=== PATIENT | female | born 1990 | race Caucasian/White ===

== ENCOUNTER 2016-08-25 17:51 | Inpatient (IN) | payer MEDICAID, OTHER ==
[~2016-08-25] VITALS: Ht 158.8 cm; Wt 75.0 kg
[2016-08-25 17:53] VITALS: BP 147/82; PULSE 140; RESP 18; TEMP 102.9; O2SAT 97
[2016-08-25 18:25] LABS: AUTOMATED NEUTROPHIL # 15.9 TH/MM3 (1.8-7.7); BASOPHIL % 0.2 % (0.0-2.0); EOSINOPHIL % 0.2 % (0.0-4.0); HEMATOCRIT 40.8 % (35.0-46.0); LYMPH % 12.6 % (9.0-44.0); LYMPHOCYTE # 2.5 TH/MM3 (1.0-4.8); MEAN CELL VOLUME 88.3 FL (80.0-100.0); MEAN CORPUSCULAR HEMOGLOBIN 29.2 PG (27.0-34.0); MEAN CORPUSCULAR HGB CONC 33.1 % (32.0-36.0); MONO % 7.5 % (0.0-8.0); NEUT % 79.5 % (16.0-70.0); PLATELET COUNT 235 TH/MM3 (150-450); RED BLOOD COUNT 4.63 MIL/MM3 (4.00-5.30); RED CELL DISTRIBUTION WIDTH 14.3 % (11.6-17.2)
[2016-08-25 18:47] LABS: BICARBONATE 23.2 MEQ/L (21.0-32.0); POTASSIUM 3.6 MEQ/L (3.5-5.1)
[2016-08-25 18:51] LABS: HEMO FLAGS AUTO DIFF
[2016-08-25] MEDS ORDERED: CLINDAMYCIN INJ 900 MG in SODIUM CHLORIDE 0.9% INJ 100 ML IV STA (19:18)
[2016-08-25] MEDS ORDERED: metroNIDAZOLE 500 MG INJ 100 ML IV STA (19:18)
--- NOTE | 2016-08-25 19:34 | PD ---
HPI Chief Complaint: Fever Time Seen by Provider: 19:18 Travel History International Travel<30 days: No Contact w/Intl Traveler<30days: No Traveled to known affect area: No History of Present Illness HPI 25-year-old female with history of poor dentition and previous dental infections , had a dental abscess on her left mandibular premolar that started draining today and she states that soon after she started feeling more swelling in the left mandible area under the jaw. She states that it feels exactly going to the right side as well. She states that she has some trouble coughing but denies any difficulty swallowing, talking, or shortness of breath. She has been feeling ill and has been having fevers. Modifying Factors: None Associated Signs & Symptoms: Mandibular abscess, jaw swelling Risk Factors: None PFSH Past Medical History Medical History: Denies Significant Hx Diminished Hearing: No Tetanus Vaccination: < 5 Years Influenza Vaccination: Yes ?: Not LMP: 07/28/16 Past Surgical History Surgical History: No Previous Surgery Social History Alcohol Use: Yes (ocassionally) Tobacco Use: Yes (1/2 pack per day ) Substance Use: No (pt denies) Allergies-Medications (Allergen,Severity, Reaction): Coded Allergies: No Known Allergies (Unverified , 08/25/16) Reported Meds & Prescriptions Reported Meds & Active Scripts Active No Active Prescriptions or Reported Medications Review of Systems Except as stated in HPI: all other systems reviewed are Neg Physical Exam Narrative GENERAL: Well-developed young female patient currently in mild distress. Awake and oriented 3. She is talking without problems. SKIN: Focused skin assessment warm/dry. HEAD: Atraumatic. Normocephalic. EYES: Pupils equal and round. No scleral icterus. No injection or drainage. ENT: Mucosa pink and moist. No erythema or exudates. No uvular edema. No uvular , palatal, or tonsillar deviation. Airway patent. There is no fullness or tenderness on palpation of the submandibular area. Notable poor dentition in the left mandibular molars. ENT: No nasal bleeding or discharge. Mucous membranes pink and moist. NECK: Trachea midline. No JVD. CARDIOVASCULAR: Regular rate and rhythm. No murmur appreciated. RESPIRATORY: No accessory muscle use. Clear to auscultation. Breath sounds equal bilaterally. GASTROINTESTINAL: Abdomen soft, non-tender, nondistended. Hepatic and splenic margins not palpable. MUSCULOSKELETAL: No obvious deformities. No clubbing. No cyanosis. No edema. NEUROLOGICAL: Awake and alert. No obvious cranial nerve deficits. Motor grossly within normal limits. Normal speech. PSYCHIATRIC: Appropriate mood and affect; insight and judgment normal. Data Data Last Documented VS Vital Signs Date Time Temp Pulse Resp B/P Pulse Ox O2 Delivery O2 Flow Rate FiO2 08/25/16 18:40 18 100 Room Air 08/25/16 17:53 102.9 140 147/82 Orders Blood Culture (08/25/16 17:57) Complete Blood Count With Diff (08/25/16 17:57) Basic Metabolic Panel (Bmp) (08/25/16 17:57) Lactic Acid (08/25/16 17:57) Electrocardiogram (08/25/16 ) Metronidazole 500 Mg Inj (Flagyl 500 Mg (08/25/16 19:18) Clindamycin Inj (Cleocin Inj) (08/25/16 19:18) Ct Soft Tiss Neck W Iv Cont (08/25/16 ) Iohexol 350 Inj (Omnipaque 350 Inj) (08/25/16 20:20) Labs Laboratory Tests Test 08/25/16 18:06 White Blood Count 20.0 TH/MM3 Red Blood Count 4.63 MIL/MM3 Hemoglobin 13.5 GM/DL Hematocrit 40.8 % Mean Corpuscular Volume 88.3 FL Mean Corpuscular Hemoglobin 29.2 PG Mean Corpuscular Hemoglobin 33.1 % Concent Red Cell Distribution Width 14.3 % Platelet Count 235 TH/MM3 Mean Platelet Volume 7.6 FL Neutrophils (%) (Auto) 79.5 % Lymphocytes (%) (Auto) 12.6 % Monocytes (%) (Auto) 7.5 % Eosinophils (%) (Auto) 0.2 % Basophils (%) (Auto) 0.2 % Neutrophils # (Auto) 15.9 TH/MM3 Lymphocytes # (Auto) 2.5 TH/MM3 Monocytes # (Auto) 1.5 TH/MM3 Eosinophils # (Auto) 0.0 TH/MM3 Basophils # (Auto) 0.0 TH/MM3 CBC Comment AUTO DIFF Differential Comment AUTO DIFF CONFIRMED Sodium Level 134 MEQ/L Potassium Level 3.6 MEQ/L Chloride Level 103 MEQ/L Carbon Dioxide Level 23.2 MEQ/L Anion Gap 8 MEQ/L Blood Urea Nitrogen 10 MG/DL Creatinine 0.79 MG/DL Estimat Glomerular Filtration 89 ML/MIN Rate Random Glucose 108 MG/DL Lactic Acid Level 0.9 mmol/L Calcium Level 8.5 MG/DL MDM Medical Decision Making Medical Screen Exam Complete: Yes Emergency Medical Condition: Yes Medical Record Reviewed: Yes Interpretation(s) Laboratory Tests Test 08/25/16 18:06 White Blood Count 20.0 TH/MM3 (4.0-11.0) Neutrophils (%) (Auto) 79.5 % (16.0-70.0) Neutrophils # (Auto) 15.9 TH/MM3 (1.8-7.7) Monocytes # (Auto) 1.5 TH/MM3 (0-0.9) Sodium Level 134 MEQ/L (136-145) Random Glucose 108 MG/DL (74-106) Last [address] 08/25/16 0000 Signed Impressions: Service Date/Time: Thursday, August 25, 2016 20:16 - CONCLUSION: 1. There is heterogeneous enhancement of the tonsillar pillars but no abscess or peritonsillar abscess is seen. 2. There are mildly enlarged level II lymph nodes bilaterally which may be reactive. The Shakir Aguero MD Differential Diagnosis Dental abscess versus submandibular abscess versus facial cellulitis Narrative Course Patient was given IV antibiotics after cultures were drawn in the ER. Lab work shows significant leukocytosis. Lactate was not significantly elevated. CT of the soft tissues of the neck did not show any signs of obvious abscess. Case was discussed with Dr. Yang who states that he is agreeable with the IV antibiotic and that patient can follow-up in his office as long as she does not develop further surgical issues. At this point, since symptoms are progressive fast and patient appears to have signs of sepsis, my plan would be to admit her for further treatment. Case was discussed with Dr. Patterson for admission. Diagnosis Primary Impression: Dental abscess Additional Impressions: Sepsis Cellulitis and abscess of mouth Admitting Information Admitting Physician Requests: Admit Scripts No Active Prescriptions or Reported Meds Kira Hendricks MD Aug 25, 2016 19:34
[2016-08-25 19:50] LABS: SCAN/DIFF AUTO DIFF CONFIRMED
[2016-08-25] MEDS ORDERED: IOHEXOL 350 MG/ML 10 ML VIAL (for RAD DIAG) IV ONE (20:20)
--- NOTE | 2016-08-25 20:36 | RADRPT ---
EXAM DATE/TIME: 08/25/2016 20:16 [facility] COMPARISON: No previous studies available for comparison. INDICATIONS : Abscess ruptured in back of mouth last night. Fever left sided neck swelling. IV CONTRAST: 70 cc Omnipaque 350 (iohexol) IV RADIATION DOSE: 15.55 CTDIvol (mGy) MEDICAL HISTORY : None SURGICAL HISTORY : None. ENCOUNTER: Initial ACUITY: 1 day PAIN SCALE: 4/10 LOCATION: neck TECHNIQUE: Volumetric scanning of the neck was performed. Using automated exposure control and adjustment of th e mA and/or kV according to patient size, radiation dose was kept as low as reasonably achievable to obtain optimal diagnostic quality images. FINDINGS: NASOPHARYNX: The nasopharyngeal airway has a normal configuration. No mucosal thickening or mass is seen. OROPHARYNX: The intrinsic muscles of the tongue are symmetric. The tonsillar pillars demonstrate heterogeneous e nhancement but no abscess is identified. The prevertebral soft tissues are not thickened. LARYNX: The supraglottic, glottic, and infraglottic structures demonstrate no acute finding. SALIVARY GLANDS: The parotid and submandibular glands are within normal limits. LYMPH NODES: There are mildly enlarged level II lymph nodes bilaterally measuring up to 13 mm in short axis diamet er. THYROID: Within normal limits. BONES: Within normal limits. Intracranial structures and orbits demonstrate no acute finding. The visualized sinuses are clear. CONCLUSION: 1. There is heterogeneous enhancement of the tonsillar pillars but no abscess or peritonsillar absces s is seen. 2. There are mildly enlarged level II lymph nodes bilaterally which may be reactive. The Shakir Aguero MD on August 25, 2016 at 20:31 Board Certified Radiologist. This report was verified electronically.
[2016-08-25] MEDS ORDERED: NALOXONE HCL 0.4 MG/ML AMP IV PRN (21:45)
[2016-08-25] MEDS ORDERED: SODIUM CHLORIDE 0.9% FLUSH 10 ML FLUSH IV FLUSH PRN (21:45)
[2016-08-25] MEDS: SODIUM CHLOR 0.9% 1000 ML INJ 1,000 ML IV SCH (22:16)
[2016-08-25 22:27] VITALS: TEMP 102
[2016-08-25 23:01] VITALS: BP 103/58; PULSE 116; RESP 16; O2SAT 95
[2016-08-25] MEDS: ACETAMINOPHEN 325 MG TAB PO PRN (23:02)
[2016-08-25 23:52] VITALS: BP 109/54; PULSE 111; RESP 18; TEMP 102; O2SAT 95
[2016-08-26] VITALS (7 sets, daily range): BP systolic 107–124; BP diastolic 56–64; PULSE 85–119; RESP 18–20; TEMP 97.7–101.7; O2SAT 94–97
[2016-08-26] MEDS: CLINDAMYCIN INJ 900 MG in SODIUM CHLORIDE 0.9% INJ 100 ML IV SCH ×4 (03:22→16:20)
[2016-08-26] MEDS: ACETAMINOPHEN 325 MG TAB PO PRN ×2 (06:10→10:12)
--- NOTE | 2016-08-26 08:35 | HHI.HP ---
[facility] No Primary Care Physician Admission Diagnosis left mandibular tooth abscess/cellulitis/sepsis Diagnoses: Chief Complaint: left mandibular swelling Travel History International Travel<30 Days: No Contact w/Intl Traveler <30 Da: No Traveled to Known Affected Are: No Sepsis Criteria SIRS Criteria (2 or more): Temp > 100.9 or < 96.8, Heart rate over 90, WBC > 77305, < 4000 or > 10% bands Sepsis Criteria (SIRS+source): Infect source susp/known History of Present Illness Written by TATY Hyde acting as scribe for Dr. Zee] on 08/26/16 at 08: 25. This note was transcribed by scribe TATY Hyde. I, Dr. Kary Parrish personally performed the history, physical exam, and medical decision making; and confirmed the accuracy of the information in the transcribed note. Authenticated by Dr. Kary Parrish on 08/26/16 at 08:25. 25 y/o female with no medical history presented to the ED with complaints of fever, swelling, headache, and unable to eat since Thursday. She says she had an abscess in her mouth that she popped on Thursday. She state her headache is throbbing 10/10 with radiation to her neck, the pain is made worse by coughing, and she is requesting pain medication. She denies any chest pain, sputum production, nausea or vomiting. She states she has only been able to drink chicken broth, she has not consumed any solid food due to the pain and swelling. Review of Systems Constitutional: COMPLAINS OF: Fever, DENIES: Chills Ears, nose, mouth, throat: COMPLAINS OF: Toothache, DENIES: Nasal discharge, Running Nose Respiratory: COMPLAINS OF: Cough, DENIES: Sputum production, Shortness of breath Cardiovascular: DENIES: Chest pain, Lower Extremity Edema Gastrointestinal: COMPLAINS OF: Difficulty Swallowing, DENIES: Constipation, Diarrhea, Nausea, Vomiting Genitourinary: DENIES: Hematuria, Dysuria Musculoskeletal: DENIES: Back pain, Neck pain Integumentary: DENIES: Rash Neurologic: COMPLAINS OF: Headache, DENIES: Localized weakness Past Family Social History Past Medical History patient denies medical history Past Surgical History appendectomy Reported Medications Reported Meds & Active Scripts Active No Active Prescriptions or Reported Medications Allergies: Coded Allergies: No Known Allergies (Unverified , 08/25/16) Active Ordered Medications Current Medications Medications (Trade) Dose Ordered Sig/Chidi Route Start Time Stop Time Status Last Admin (NS 1000 ml Inj) 1,000 ml @ 100 mls/hr Q10H IV 08/25/16 22:00 08/25/16 22:16 (NS Flush) 2 ml UNSCH PRN IV FLUSH 08/25/16 21:45 (NS Flush) 2 ml BID IV FLUSH 08/26/16 09:00 Naloxone HCl 0.4 mg 0.4 mg UNSCH PRN IV 08/25/16 21:45 (Cleocin Inj/NS Inj) 106 ml @ 212 mls/hr Q6H IV 08/26/16 03:00 08/26/16 03:22 (Tylenol) 650 mg Q4H PRN PO 08/25/16 23:00 08/26/16 06:10 Family History patient is unsure if her family has any medical history Social History Tobacco use; ppd Alcohol use illicit drug use; denies Physical Exam Vital Signs Vital Signs Date Time Temp Pulse Resp B/P Pulse Ox O2 Delivery O2 Flow Rate FiO2 08/26/16 07:10 100.5 109 20 124/59 94 08/26/16 05:14 101.7 119 18 111/58 95 08/26/16 00:21 101 08/25/16 23:52 102.0 111 18 109/54 95 08/25/16 23:01 116 16 103/58 95 Room Air 08/25/16 22:27 102.0 08/25/16 18:40 18 100 Room Air 08/25/16 17:53 102.9 140 18 147/82 97 Physical Exam GENERAL: This is a well-nourished patient who appears to be in pain SKIN: No rashes, ecchymoses or lesions. Cool and dry. Erythema left lower law and cheek. HEAD: Atraumatic. Normocephalic. EYES: Pupils equal round and reactive. ENT: Nose without bleeding, purulent drainage or septal hematoma. Left mandible edema. Airway patent. NECK: Trachea midline. No JVD or lymphadenopathy. Supple, nontender, no meningeal signs. CARDIOVASCULAR: Regular rate and rhythm without murmurs, gallops, or rubs. RESPIRATORY: Clear to auscultation. Breath sounds equal bilaterally. No wheezes , rales, or rhonchi. GASTROINTESTINAL: Abdomen soft, non-tender, nondistended. No hepato-splenomegaly , or palpable masses. No guarding. MUSCULOSKELETAL: Extremities without clubbing, cyanosis, or edema. No calf tenderness. NEUROLOGICAL: Awake and alert. Motor and sensory grossly within normal limits. Normal speech. Laboratory Laboratory Tests Test 08/25/16 18:06 White Blood Count 20.0 Red Blood Count 4.63 Hemoglobin 13.5 Hematocrit 40.8 Mean Corpuscular Volume 88.3 Mean Corpuscular Hemoglobin 29.2 Mean Corpuscular Hemoglobin 33.1 Concent Red Cell Distribution Width 14.3 Platelet Count 235 Mean Platelet Volume 7.6 Neutrophils (%) (Auto) 79.5 Lymphocytes (%) (Auto) 12.6 Monocytes (%) (Auto) 7.5 Eosinophils (%) (Auto) 0.2 Basophils (%) (Auto) 0.2 Neutrophils # (Auto) 15.9 Lymphocytes # (Auto) 2.5 Monocytes # (Auto) 1.5 Eosinophils # (Auto) 0.0 Basophils # (Auto) 0.0 CBC Comment AUTO DIFF Differential Comment AUTO DIFF CONFIRMED Sodium Level 134 Potassium Level 3.6 Chloride Level 103 Carbon Dioxide Level 23.2 Anion Gap 8 Blood Urea Nitrogen 10 Creatinine 0.79 Estimat Glomerular Filtration 89 Rate Random Glucose 108 Lactic Acid Level 0.9 Calcium Level 8.5 Date/Time Procedure Status Source Growth 08/25/16 18:05 Aerobic Blood Culture Received Blood Peripheral Pending 08/25/16 18:05 Anaerobic Blood Culture Received Blood Peripheral Pending Result Diagram: 08/25/16 1806 08/25/16 1806 Imaging Last Impressions Neck CT 08/25/16 0000 Signed Impressions: Service Date/Time: Thursday, August 25, 2016 20:16 - CONCLUSION: 1. There is heterogeneous enhancement of the tonsillar pillars but no abscess or peritonsillar abscess is seen. 2. There are mildly enlarged level II lymph nodes bilaterally which may be reactive. The Shakir Aguero MD Assessment and Plan Problem List: (1) Sepsis ICD Code: A41.9 Status: Acute (2) Cellulitis of mouth ICD Code: K12.2 Status: Acute Assessment and Plan 25 y/o female with no medical history presented to the ED with complaints of fever, swelling, headache, and unable to eat since Thursday. She says she had an abscess in her mouth that she popped on Thursday. Sepsis, WBC 20, fever 102, due to cellulitis of the mouth Neck ct shows heterogeneous enhancement of the tonsillar pillars but no abscess or peritonsillar abscess is seen.There are mildly enlarged level II lymph nodes bilaterally which may be reactive. -Cont clindamycin IV for at least 48 hours, DC on PO -CBC pending, trend -Blood cultures pending -Per ER DrDr Yang states patient can follow up outpatient, and he agrees with IV antibiotics -IV Decadron 4mg Q8 for 24 hours, then BID -Pain management with IV morphine 2mg Q3h Tobacco use, chronic -encouraged to quit -cessation given DVT Prophylaxis: low risk, encourage ambulation Discussed Condition With Patient Physician Certification 2 Midnight Certification Type: Admission for Inpatient Services Order for Inpatient Services The services are ordered in accordance with Medicare regulations or non- Medicare payer requirements, as applicable. In the case of services not specified as inpatient-only, they are appropriately provided as inpatient services in accordance with the 2-midnight benchmark. Estimated LOS (days): 3 days is the estimated time the patient will need to remain in the hospital, assuming treatment plan goals are met and no additional complications. Post-Hospital Plan: Home Mariely Pascal Aug 26, 2016 08:35 Kary Parrish MD Aug 26, 2016 12:11
[2016-08-26] MEDS ORDERED: MORPHINE SULFATE 4 MG/ML INJ IV PUSH PRN (09:15)
[2016-08-26] MEDS: SODIUM CHLORIDE 0.9% FLUSH 10 ML FLUSH IV FLUSH SCH ×2 (09:32→21:00)
[2016-08-26] MEDS: SODIUM CHLOR 0.9% 1000 ML INJ 1,000 ML IV SCH ×3 (09:32→21:20)
[2016-08-26] MEDS: DEXAMETHASONE SOD PHOS 4 MG/ML VIAL IV SCH ×2 (10:11→17:30)
[2016-08-26 10:32] LABS: AUTOMATED NEUTROPHIL # 14.7 TH/MM3 (1.8-7.7); BASOPHIL # 0.1 TH/MM3 (0-0.2); BASOPHIL % 0.3 % (0.0-2.0); EOSINOPHIL % 0.1 % (0.0-4.0); HEMATOCRIT 38.1 % (35.0-46.0); HEMO FLAGS DIFF FINAL; LYMPH % 11.3 % (9.0-44.0); LYMPHOCYTE # 2.1 TH/MM3 (1.0-4.8); MEAN CELL VOLUME 88.9 FL (80.0-100.0); MEAN CORPUSCULAR HEMOGLOBIN 29.5 PG (27.0-34.0); MEAN CORPUSCULAR HGB CONC 33.2 % (32.0-36.0); MONO % 7.9 % (0.0-8.0); NEUT % 80.4 % (16.0-70.0); PLATELET COUNT 210 TH/MM3 (150-450); RED BLOOD COUNT 4.28 MIL/MM3 (4.00-5.30); RED CELL DISTRIBUTION WIDTH 14.3 % (11.6-17.2); WHITE BLOOD COUNT 18.3 TH/MM3 (4.0-11.0)
[2016-08-26 10:49] LABS: BICARBONATE 23.8 MEQ/L (21.0-32.0); POTASSIUM 3.5 MEQ/L (3.5-5.1)
[2016-08-26] MEDS: NICOTINE 14 MG/24 HR PATCH T-DERMAL SCH (16:20)
--- NOTE | 2016-08-26 17:07 | EKG ---
Date Performed: 08/25/2016 Time Performed: 18:21:03 PTAGE: 25 years EKG: SINUS TACHYCARDIA NONSPECIFIC T-WAVE ABNORMALITY ABNORMAL RHYTHM ECG NO PREVIOUS TRACING DOCTOR: Carito Sam Interpretating Date/Time 08/26/2016 17:05:54
[2016-08-26] MEDS: REMOVE OLD NICODERM (NICOTINE) PATCH T-DERMAL SCH (21:00)
[2016-08-27] VITALS (7 sets, daily range): BP systolic 95–123; BP diastolic 54–65; PULSE 20–87; RESP 16–20; TEMP 97.3–98.3; O2SAT 91–97
[2016-08-27] MEDS: DEXAMETHASONE SOD PHOS 4 MG/ML VIAL IV SCH (02:29)
[2016-08-27] MEDS: CLINDAMYCIN INJ 900 MG in SODIUM CHLORIDE 0.9% INJ 100 ML IV SCH ×4 (02:33→20:03)
[2016-08-27 07:19] LABS: BASOPHIL % 0.2 % (0.0-2.0); HEMATOCRIT 38.4 % (35.0-46.0); HEMO FLAGS DIFF FINAL; LYMPH % 6.6 % (9.0-44.0); LYMPHOCYTE # 1.3 TH/MM3 (1.0-4.8); MEAN CELL VOLUME 88.4 FL (80.0-100.0); MEAN CORPUSCULAR HEMOGLOBIN 29.8 PG (27.0-34.0); MEAN CORPUSCULAR HGB CONC 33.7 % (32.0-36.0); MONO % 3.6 % (0.0-8.0); NEUT % 89.6 % (16.0-70.0); PLATELET COUNT 219 TH/MM3 (150-450); RED BLOOD COUNT 4.35 MIL/MM3 (4.00-5.30); RED CELL DISTRIBUTION WIDTH 14.3 % (11.6-17.2); WHITE BLOOD COUNT 18.9 TH/MM3 (4.0-11.0)
[2016-08-27 07:21] LABS: BICARBONATE 21.1 MEQ/L (21.0-32.0); POTASSIUM 4.3 MEQ/L (3.5-5.1)
[2016-08-27] MEDS: NICOTINE 14 MG/24 HR PATCH T-DERMAL SCH ×2 (08:26→20:08)
[2016-08-27] MEDS: SODIUM CHLORIDE 0.9% FLUSH 10 ML FLUSH IV FLUSH SCH ×2 (08:26→20:01)
[2016-08-27] MEDS: DEXAMETHASONE SOD PHOS 4 MG/ML VIAL IV PUSH SCH ×2 (08:26→20:01)
--- NOTE | 2016-08-27 08:54 | HHI.PR ---
Subjective Remarks Says pain and swelling seems to improved and she is norm to eat some today. Feels tired and has soem sob. No fever, has chills overnight. No n/v/d/c. Objective Vitals Vital Signs Date Time Temp Pulse Resp B/P Pulse Ox O2 Delivery O2 Flow Rate FiO2 08/27/16 04:31 97.3 79 16 120/65 95 08/27/16 00:00 97.5 86 16 95/54 95 08/26/16 20:00 87 08/26/16 20:00 98.1 92 18 113/64 97 08/26/16 16:36 97.7 88 18 112/57 96 08/26/16 16:29 85 08/26/16 12:29 98.7 91 18 107/56 97 I/O 08/26/16 08/26/16 08/26/16 08/27/16 08/27/16 08/27/16 07:00 15:00 23:00 07:00 15:00 23:00 Intake Total 500 ml 1500 ml 650 ml Output Total 0 ml Balance 500 ml 1500 ml 650 ml Intake Oral 500 ml 500 ml 650 ml IV Total 1000 ml Output Urine Total 0 ml # Voids 3 7 4 # Bowel Movements 0 0 0 Result Diagram: 08/27/16 0535 08/27/16 0535 Imaging Last Impressions Neck CT 08/25/16 0000 Signed Impressions: Service Date/Time: Thursday, August 25, 2016 20:16 - CONCLUSION: 1. There is heterogeneous enhancement of the tonsillar pillars but no abscess or peritonsillar abscess is seen. 2. There are mildly enlarged level II lymph nodes bilaterally which may be reactive. The Shakir Aguero MD Objective Remarks GENERAL: This is a well-nourished patient who appears to be in pain SKIN: No rashes, ecchymoses or lesions. Cool and dry. Erythema left lower law and cheek. HEAD: Atraumatic. Normocephalic. EYES: Pupils equal round and reactive. ENT: Nose without bleeding, purulent drainage or septal hematoma. Left mandible edema. Airway patent. NECK: Trachea midline. No JVD or lymphadenopathy. Supple, nontender, no meningeal signs. CARDIOVASCULAR: Regular rate and rhythm without murmurs, gallops, or rubs. RESPIRATORY: Clear to auscultation. Breath sounds equal bilaterally. No wheezes , rales, or rhonchi. GASTROINTESTINAL: Abdomen soft, non-tender, nondistended. No hepato-splenomegaly , or palpable masses. No guarding. MUSCULOSKELETAL: Extremities without clubbing, cyanosis, or edema. No calf tenderness. NEUROLOGICAL: Awake and alert. Motor and sensory grossly within normal limits. Normal speech. A/P Problem List: (1) Sepsis ICD Code: A41.9 Status: Acute (2) Cellulitis of mouth ICD Code: K12.2 Status: Acute Assessment and Plan 25 y/o female with no medical history presented to the ED with complaints of fever, swelling, headache, and unable to eat since Thursday. She says she had an abscess in her mouth that she popped on Thursday. Sepsis, WBC 20, fever 102, due to cellulitis of the mouth. Neck ct shows heterogeneous enhancement of the tonsillar pillars but no abscess or peritonsillar abscess is seen.There are mildly enlarged level II lymph nodes bilaterally which may be reactive. -Cont clindamycin IV for at least 48 hours, DC on PO -CBC pending, trend -Blood cultures pending -Per ER Dr Trey Pagan states patient can follow up outpatient, and he agrees with IV antibiotics -IV Decadron 4mg Q8 for 24 hours, then BID -Pain management with IV morphine 2mg Q3h Tobacco use, chronic -encouraged to quit -cessation given DVT Prophylaxis: low risk, encourage ambulation Discussed Condition With Patient, nurse Kary Parrish MD Aug 27, 2016 08:53
[2016-08-27] MEDS ORDERED: PRED10PA PO (11:23)
[2016-08-27] MEDS ORDERED: NICO14DI23 T-DERMAL (11:23)
[2016-08-27] MEDS ORDERED: CLIN1CAP6 PO (11:24)
--- NOTE | 2016-08-27 11:26 | HHI.DS ---
Discharge Summary Admission Date Aug 26, 2016 at 08:18 Discharge Date: Aug 28, 2016 Admitting Diagnosis left mandibular tooth abscess/cellulitis/sepsis (1) Sepsis ICD Code: A41.9 Diagnosis: Principal (2) Cellulitis of mouth ICD Code: K12.2 Diagnosis: Principal Procedures none Brief History - From Admission Written by TATY Hyde acting as scribe for [Francois] on 08/26/16 at 08: 25. This note was transcribed by scribe TATY Hyde. I, Dr. Kary Parrish personally performed the history, physical exam, and medical decision making; and confirmed the accuracy of the information in the transcribed note. Authenticated by Dr. Kary Parrish on 08/26/16 at 08:25. 25 y/o female with no medical history presented to the ED with complaints of fever, swelling, headache, and unable to eat since Thursday. She says she had an abscess in her mouth that she popped on Thursday. She state her headache is throbbing 10/10 with radiation to her neck, the pain is made worse by coughing, and she is requesting pain medication. She denies any chest pain, sputum production, nausea or vomiting. She states she has only been able to drink chicken broth, she has not consumed any solid food due to the pain and swelling. CBC/BMP: 08/27/16 0535 08/27/16 0535 Significant Findings Laboratory Tests Test 08/25/16 08/26/16 08/27/16 18:06 09:18 05:35 White Blood Count 20.0 TH/MM3 18.3 TH/MM3 18.9 TH/MM3 (4.0-11.0) (4.0-11.0) (4.0-11.0) Neutrophils (%) (Auto) 79.5 % 80.4 % 89.6 % (16.0-70.0) (16.0-70.0) (16.0-70.0) Neutrophils # (Auto) 15.9 TH/MM3 14.7 TH/MM3 17.0 TH/MM3 (1.8-7.7) (1.8-7.7) (1.8-7.7) Monocytes # (Auto) 1.5 TH/MM3 1.4 TH/MM3 (0-0.9) (0-0.9) Sodium Level 134 MEQ/L (136-145) Random Glucose 108 MG/DL 109 MG/DL 146 MG/DL (74-106) (74-106) (74-106) Chloride Level 108 MEQ/L 111 MEQ/L (98-107) (98-107) Calcium Level 8.0 MG/DL 7.5 MG/DL (8.5-10.1) (8.5-10.1) Lymphocytes (%) (Auto) 6.6 % (9.0-44.0) Imaging Last Impressions Neck CT 08/25/16 0000 Signed Impressions: Service Date/Time: Thursday, August 25, 2016 20:16 - CONCLUSION: 1. There is heterogeneous enhancement of the tonsillar pillars but no abscess or peritonsillar abscess is seen. 2. There are mildly enlarged level II lymph nodes bilaterally which may be reactive. The Shakir Aguero MD PE at Discharge GENERAL: This is a well-nourished patient who appears to be in pain SKIN: No rashes, ecchymoses or lesions. Cool and dry. Erythema left lower law and cheek. HEAD: Atraumatic. Normocephalic. EYES: Pupils equal round and reactive. ENT: Nose without bleeding, purulent drainage or septal hematoma. Left mandible edema. Airway patent. NECK: Trachea midline. No JVD or lymphadenopathy. Supple, nontender, no meningeal signs. CARDIOVASCULAR: Regular rate and rhythm without murmurs, gallops, or rubs. RESPIRATORY: Clear to auscultation. Breath sounds equal bilaterally. No wheezes , rales, or rhonchi. GASTROINTESTINAL: Abdomen soft, non-tender, nondistended. No hepato-splenomegaly , or palpable masses. No guarding. MUSCULOSKELETAL: Extremities without clubbing, cyanosis, or edema. No calf tenderness. NEUROLOGICAL: Awake and alert. Motor and sensory grossly within normal limits. Normal speech. Pt update on day of discharge Was able to eat breakfast, less pain. No sob. No fever or chills , feels comfortable to go home. Has an appointment on Thu as OP with dentist Hospital Course 25 y/o female with no medical history presented to the ED with complaints of fever, swelling, headache, and unable to eat since Thursday. She says she had an abscess in her mouth that she popped on Thursday. Sepsis, WBC 20, fever 102, due to cellulitis of the mouth. Neck ct shows heterogeneous enhancement of the tonsillar pillars but no abscess or peritonsillar abscess is seen.There are mildly enlarged level II lymph nodes bilaterally which may be reactive. -Cont clindamycin IV for at least 48 hours, DC on PO -CBC pending, trend -Blood cultures pending -Per ER Dr, Dr Yang states patient can follow up outpatient, and he agrees with IV antibiotics -IV Decadron 4mg Q8 for 24 hours, then BID -Pain management with IV morphine 2mg Q3h Tobacco use, chronic -encouraged to quit -cessation given DVT Prophylaxis: low risk, encourage ambulation Improved, Tolerates food, no sob. DC home instable condition , to follow up as OP with PCP and consultants Pt Condition on Discharge: Stable Discharge Disposition: Discharge Home Discharge Time: > 30 minutes Discharge Instructions DIET: Follow Instructions for: As Tolerated, No Restrictions Activities you can perform: Regular-No Restrictions Follow up Referrals: Oral Maxillary Surgery - 2-3 Days with Vipin Yang DMD PCP Follow-up - 3-5 Days New Medications: Clindamycin (Clindamycin) 300 Mg Cap 300 MG PO TID Infection #30 Ref 0 CAP Hydrocodone-Acetaminophen ([place]) 5-325 mg Tab 1 TAB PO Q6HR PRN PAIN #20 Ref 0 TAB Prednisone (21) 10 mg tab Dose Pack (Prednisone (21) 10 mg tab Dose Pack) 10 Mg Pack 10 MG PO DIRECTED Inflammation #1 Ref 0 DSPK Nicotine (Eq Nicotine) 14 Mg/24 Hr Dis 1 PATCH T-DERMAL DAILY smoking cessation #30 PATCH Kary Parrish MD Aug 27, 2016 11:25
[2016-08-27] MEDS ORDERED: NORC5TAB PO (11:27)
[2016-08-27] MEDS: SODIUM CHLOR 0.9% 1000 ML INJ 1,000 ML IV SCH (20:03)
[2016-08-27] MEDS: REMOVE OLD NICODERM (NICOTINE) PATCH T-DERMAL SCH (20:07)
[2016-08-28] VITALS: BP 123/59; PULSE 76; RESP 20; TEMP 98.2; O2SAT 97
[2016-08-28] MEDS: CLINDAMYCIN INJ 900 MG in SODIUM CHLORIDE 0.9% INJ 100 ML IV SCH ×2 (02:37→08:31)
[2016-08-28 04:00] VITALS: BP 106/55; PULSE 80; RESP 20; TEMP 97.7; O2SAT 95
[2016-08-28 08:01] VITALS: BP 108/59; PULSE 77; RESP 18; TEMP 97.8; O2SAT 98
[2016-08-28] MEDS: NICOTINE 14 MG/24 HR PATCH T-DERMAL SCH (08:32)
[2016-08-28] MEDS: SODIUM CHLORIDE 0.9% FLUSH 10 ML FLUSH IV FLUSH SCH (08:32)
[2016-08-28] MEDS: DEXAMETHASONE SOD PHOS 4 MG/ML VIAL IV PUSH SCH (08:32)
== END 2016-08-28 10:35 | disposition home or self-care (01) | DRG 872 ==
LOC: NEPE 17:51 → NEDA 21:40 → NEPFCDU 23:19 → OBSVTOIN 08-26 08:18 → N04A 08-26 16:10
PROVIDERS: ADMIT Hospitalist; ATTEND Hospitalist
DX: A41.9 Sepsis, unspecified organism (principal); K12.2 Cellulitis and abscess of mouth; K04.7 Periapical abscess without sinus; F17.210 Nicotine dependence, cigarettes, uncomplicated
CPT/HCPCS: 70491; 80048; 83605; 85025; 87040; 93005; 96365; 96366; 96367; G0378; J1100; J2270; J7030; Q9967